=== PATIENT | male | born 1965 | race Caucasian/White ===

== ENCOUNTER → 2017-07-10 | Outpatient (CLI) | payer MEDICAID, OTHER ==
[~2017-07-10] MED LIST: GADOBUTROL 10 ML VIAL IVP ONE
== END ==
LOC: FIMAGING 13:28
PROVIDERS: ATTEND Neurological Surgery
DX: I67.1 Cerebral aneurysm, nonruptured (principal)
CPT/HCPCS: A9585

== ENCOUNTER → 2018-01-18 | Outpatient (CLI) | payer MEDICAID | LOC: FIMAGING 18:02 | PROVIDERS: ATTEND Neurological Surgery | DX: I72.5 Aneurysm of other precerebral arteries (principal); G93.6 Cerebral edema | CPT/HCPCS: A9585 ==

== ENCOUNTER → 2018-03-31 | Outpatient (CLI) | payer MEDICAID | LOC: FCPNEURO 21:00 | PROVIDERS: ATTEND Psychiatry & Neurology Sleep Medicine | DX: G47.61 Periodic limb movement disorder (principal) ==

== ENCOUNTER → 2018-07-18 | Outpatient (CLI) | payer OTHER, MEDICAID | LOC: FIMAGING 06:45 | PROVIDERS: ATTEND Physician Assistant | DX: I72.5 Aneurysm of other precerebral arteries (principal); G93.89 Other specified disorders of brain; Z98.890 Other specified postprocedural states | CPT/HCPCS: 70544; 70553; A9585 ==

== ENCOUNTER → 2018-08-17 | Day surgery (SDC) | payer OTHER, MEDICAID ==
[~2018-08-17] MED LIST changes: +FLUMAZENIL 0.5 MG/5 ML MDV IVP ONE; +FLUMAZENIL 0.5 MG/5 ML MDV IVP PRN; -GADOBUTROL 10 ML VIAL IVP ONE; +HEPARIN 10,000 UNIT/10 ML MDV (1,000 UNIT/ML) IVP PRN; +IOPAMIDOL (ISOVUE-300) 100 ML BTL ONE; +LIDOCAINE 1% 300 MG/30 ML SDV ONE; +MIDAZOLAM 2 MG/2 ML VIAL IVP PRN; +MIDAZOLAM 2 MG/2 ML VIAL ONE; +NALOXONE HCL 0.4 MG/ML INJ IVP PRN; +NALOXONE HCL 0.4 MG/ML INJ ONE; +NS 1,000 ML IV SCH; +ONDANSETRON 4 MG/2 ML VIAL IVP PRN; +OXYCODONE/APAP 5/325 TAB PO PRN; +PROTAMINE SULFATE 50 MG/5 ML VIAL IVP PRN; +fentaNYL 100 MCG/2 ML INJ IVP PRN; +fentaNYL 100 MCG/2 ML INJ ONE
--- NOTE | 2018-08-17 13:21 | PDHPUP ---
History & Physical Update H&P update statement: This history and physical update is based on an assessment of the patient which was completed after admission or registration (within 24 hours), but prior to the surgery/procedure. H&P update: H&P reviewed & patient examined, no change in patient's condition since H&P completed
--- NOTE | 2018-08-17 13:22 | PDPROPOC ---
Sedation Plan of Care Sedation Plan of Care: vital signs stable, mental status noted, patient educated of risks, benefits, alternatives, patient can tolerate sedation ASA Classification: ASA 2 Planned drugs: fentanyl, midazolam Mallampati Score: Class 1 Mallampati Reference Image: Patient passed 3-3-2 rule?: Yes
[2018-08-17 14:17] VITALS: BP 120/76
--- NOTE | 2018-08-17 14:17 | POSTOPPROG ---
Post Op Note Date of Operation: 08/17/18 Surgeon: [facility] Specialist: none Anesthesiologist: n/a Anesthesia: IV Sedation Pre-op Diagnosis: basilar aneurysm Post-op Diagnosis: same Indication: evaluate s/p coil embolization of basilar aneurysm Procedure: diagnostic cerebral angiogram Findings: Raz 1 occlusion of basilar aneurysm Inf/Abcess present in the surg proc area at time of surgery?: No EBL: Minimal
== END | disposition home or self-care (01) ==
LOC: FIMAGING 11:04
PROVIDERS: ATTEND Neurological Surgery
DX: I67.1 Cerebral aneurysm, nonruptured (principal)
CPT/HCPCS: 36224; 36226; 99152; 99153; C1769; C1887; J1644; J2250; J2310; J3010; Q9967